=== PATIENT | female | born 1990 | race Caucasian/White ===

== ENCOUNTER 2016-05-17 16:33 | Emergency (ER) | payer OTHER ==
[2016-05-17 16:52] VITALS: BP 114/50
--- NOTE | 2016-05-17 17:09 | ED ---
Lower Extremity - HPI Summary HPI Summary: Patient presents with right knee pain that began 5 days ago that she noticed while walking down a hill. 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 She kneels on the knee quite often while cleaning, but has not fallen on it or injured it in the past. She notices mild swelling, but denies locking, clicking, catching or instability. No N/T. - History of Current Complaint Chief Complaint: EDExtremityLower Stated Complaint: RT KNEE PAIN Time Seen by Provider: 05/17/16 16:53 Hx Obtained From: Patient Hx Last Menstrual Period: OCTOBER 06 Mechanism Of Injury: Unknown Onset of Pain: Days - 5 Onset/Duration: Still Present - 5 Severity Initially: Moderate Severity Currently: Moderate Pain Intensity: 6 Timing: Intermittent - mostly when climbing or decending stairs Location: Is Discrete @ - right kneecap Character Of Pain: Sharp, Aching Associated Signs And Symptoms: Positive: Swelling - mild, Knee Pain Aggravating Factor(s): Stairs Alleviating Factor(s): Rest Able to Bear Weight: Yes - Allergies/Home Medications Allergies/Adverse Reactions: Allergies Allergy/AdvReac Type Severity Reaction Status Date / Time No Known Allergies Allergy Verified 05/17/16 16:52 PMH/Surg Hx/FS Hx/Imm Hx Endocrine/Hematology History: Denies: Hx Diabetes, Hx Thyroid Disease Cardiovascular History: Denies: Hx Hypertension Respiratory History: Denies: Hx Asthma, Hx Chronic Obstructive Pulmonary Disease (COPD) GI History: Denies: Hx Ulcer Psychiatric History: Reports: Hx Depression - PT denies, OB hx documents hx depression, Hx Inpatient Treatment - [facility] 06/2008, Hx of Violent Episodes Against Others - See H&P from 06/2008 admission - Immunization History Date of Tetanus Vaccine: Up to Date Date of Influenza Vaccine: None Infectious Disease History: No Infectious Disease History: Denies: Hx Hepatitis, Hx Human Immunodeficiency Virus (HIV), Traveled Outside the [place] in Last 30 Days - Family History Known Family History: Positive: Unknown, Hypertension - Social History Occupation: Employed Full-time Lives: With Family Alcohol Use: None Alcohol Amount: PT reports past hx of etoh use Substance Use Type: Reports: None Hx Tobacco Use: Yes Smoking Status (MU): Current Some Day Smoker Type: Cigarettes Have You Smoked in the Last Year: No Cessation Counseling: Patient Advised to Stop Review of Systems Positive: Myalgia, Edema - mild anterior knee. Negative: Decreased ROM Negative: Bruising Negative: Weakness, Paresthesia, Numbness All Other Systems Reviewed And Are Negative: Yes Physical Exam Triage Information Reviewed: Yes Vital Signs On Initial Exam: Initial Vitals Temp Pulse Resp BP Pulse Ox 98.6 F 82 18 114/50 97 05/17/16 16:50 05/17/16 16:50 05/17/16 16:50 05/17/16 16:50 05/17/16 16:50 Vital Signs Reviewed: Yes Appearance: Positive: Well-Appearing, No Pain Distress, Well-Nourished Skin: Positive: Warm, Skin Color Reflects Adequate Perfusion, Dry, Soft Head/Face: Positive: Normal Head/Face Inspection Eyes: Positive: EOMI, AYLIN, Conjunctiva Clear ENT: Positive: Hearing grossly normal Respiratory/Lung Sounds: Positive: Breath Sounds Present Cardiovascular: Positive: RRR Musculoskeletal: Positive: Strength/ROM Intact, Pain @ - TTP with patellar manipulation and over fat pad and patellar tendon; non-tender over med/lat joint line; stable to varus/valgus stress; neg. Palmira/Anshu's, Edema Right - mild anterior kneecap Neurological: Positive: Sensory/Motor Intact, Alert, Oriented to Person Place, Time, NV Bundle Intact Distally, Abnormal Gait - mild limp Psychiatric: Positive: Affect/Mood Appropriate AVPU Assessment: Alert Diagnostics - Vital Signs Vital Signs Temp Pulse Resp BP Pulse Ox 05/17/16 16:50 98.6 F 82 18 114/50 97 - Laboratory Lab Statement: Any lab studies that have been ordered have been reviewed, and results considered in the medical decision making process. Lower Extremity Course/Dx - Diagnoses Differential Diagnosis/HQI/PQRI: Positive: Arthritis, Bursitis, Cellulitis, Contusion, DVT, Fracture (Closed), Sprain, Strain Provider Diagnoses: Patellofemoral disorder of right knee Discharge - Discharge Plan Condition: Stable Disposition: HOME Patient Education Materials: Patellofemoral Pain Syndrome (ED) Forms: *Work Release Additional Instructions: Please use 600mg of ibuprofen three times daily with meals for the next 5-7 days , in combination with ice, rest and leg raises as we discussed. It is okay for you to bear weight but avoid activities that irritate the knee. Return to the emergency department if your symptoms worsen.
== END 2016-05-17 17:20 | disposition home or self-care (01) ==
LOC: ED 16:33
DX: M22.2X1 Patellofemoral disorders, right knee (principal); M25.561 Pain in right knee; Z72.0 Tobacco use
CPT/HCPCS: 99281

== ENCOUNTER 2016-06-21 10:44 | Emergency (ER) | payer MEDICAID, OTHER ==
[2016-06-21 10:53] VITALS: BP 118/66
[2016-06-21] MEDS ORDERED: Penicillin VK 500 MG TAB(NF) PO ONE (11:29)
[2016-06-21] MEDS ORDERED: diPHENhydraMINE PO* 25 MG PO ONE ×2 (11:29)
[2016-06-21] MEDS ORDERED: Penicillin VK TAB* 250 MG PO ONE ×3 (11:47→12:00)
--- NOTE | 2016-06-21 11:50 | ED ---
Washington Bond Janilya, scribed for Nico Fountain MD on 06/21/16 at 1121 . Skin Complaint - HPI Summary HPI Summary: [place] 25 y/o [place] [facility] [place]/ a gradual onset of constant erythemous, puritic area on the left side of jaw starting this morning. Pt states that the area is itchy and swollen. She suspects it might be a bite. Pt denies tooth infection and tooth pain. Pt is not on Abx. Pt states she had these exact Sx a month ago that lasted about a week. - History of Current Complaint Chief Complaint: EDRashSkinAbscess Time Seen by Provider: 06/21/16 11:14 Stated Complaint: DENTAL PAIN, Hx Obtained From: Patient Hx Last Menstrual Period: OCTOBER 06 Onset/Duration: Started Days Ago, Atraumatic, Still Present Skin Exposure Onset/Duration: Days Ago Timing: Constant Onset Severity: Moderate Current Severity: Moderate Pain Intensity: 0 Skin Location: Face - jaw Aggravating Symptom(s): Nothing Alleviating Symptom(s): Nothing - Allergy/Home Medications Allergies/Adverse Reactions: Allergies Allergy/AdvReac Type Severity Reaction Status Date / Time No Known Allergies Allergy Verified 06/21/16 10:51 PMH/Surg Hx/FS Hx/Imm Hx Previously Healthy: Yes Endocrine/Hematology History: Denies: Hx Diabetes, Hx Thyroid Disease Cardiovascular History: Denies: Hx Hypertension Respiratory History: Denies: Hx Asthma, Hx Chronic Obstructive Pulmonary Disease (COPD) GI History: Denies: Hx Ulcer Psychiatric History: Reports: Hx Depression - PT denies, OB hx documents hx depression, Hx Inpatient Treatment - [facility] 06/2008, Hx of Violent Episodes Against Others - See H&P from 06/2008 admission - Immunization History Date of Tetanus Vaccine: Up to Date Date of Influenza Vaccine: None Infectious Disease History: No Infectious Disease History: Denies: Hx Hepatitis, Hx Human Immunodeficiency Virus (HIV), Traveled Outside the [place] in Last 30 Days - Family History Known Family History: Positive: Hypertension - Social History Alcohol Use: None Alcohol Amount: PT reports past hx of etoh use Substance Use Type: Reports: None Hx Tobacco Use: Yes Smoking Status (MU): Light Every Day Tobacco Smoker Type: Cigarettes Have You Smoked in the Last Year: No Review of Systems ENT: Negative - pt denies tooth infection Negative: Dental Pain Positive: Other - Erythemous, puritic, itchy, swollen area on left side of jaw All Other Systems Reviewed And Are Negative: Yes Physical Exam Triage Information Reviewed: Yes Vital Signs On Initial Exam: Initial Vitals Temp Pulse Resp BP Pulse Ox 98.0 F 47 18 118/66 100 06/21/16 10:51 06/21/16 10:51 06/21/16 10:51 06/21/16 10:51 06/21/16 10:51 Vital Signs Reviewed: Yes Appearance: Positive: Well-Appearing, No Pain Distress Skin: Positive: Warm, Skin Color Reflects Adequate Perfusion, Dry Head/Face: Positive: Other - Erythema of left jaw. Eyes: Positive: EOMI, AYLIN ENT: Positive: Normal ENT inspection Dental: Positive: Gross Decay/Caries @, Other - Abcess in left lower gingiva. Neck: Positive: Supple, Nontender, No Lymphadenopathy Respiratory/Lung Sounds: Positive: Clear to Auscultation, Breath Sounds Present Cardiovascular: Positive: RRR Abdomen Description: Positive: Nontender, Soft Bowel Sounds: Positive: Present Musculoskeletal: Positive: Normal, Strength/ROM Intact Neurological: Positive: Normal, Sensory/Motor Intact, Alert, Oriented to Person Place, Time Psychiatric: Positive: Affect/Mood Appropriate Diagnostics - Vital Signs Vital Signs Temp Pulse Resp BP Pulse Ox 06/21/16 10:51 98.0 F 47 18 118/66 100 - Laboratory Lab Statement: Any lab studies that have been ordered have been reviewed, and results considered in the medical decision making process. Course/Dx - Course Assessment/Plan: DISCHARGE HOME STABLE. - Diagnoses Provider Diagnoses: Dental abscess, Skin rash Discharge - Discharge Plan Condition: Stable Disposition: HOME Prescriptions: Penicillin VK TAB 500 MG(NF) [Penicillin VK 500 mg Tab(NF)] 500 mg PO QID #39 tab diPHENhydraMINE PO* [Benadryl PO*] 25 mg PO Q6H PRN #20 tab PRN Reason: Itching Patient Education Materials: Dental Abscess (ED), Acute Rash (ED) [place] [facility] [place]] Additional Instructions: FOLLOW UP WITH YOUR PRIMARY CARE DOCTOR AND DENTIST. TAKE BENADRYL 25MG EVERY 4 HOURS NEEDED FOR ITCHING. RETURN TO THE EMERGENCY DEPARTMENT FOR ANY WORSENING OF YOUR CONDITION OR QUESTIONS OR CONCERNS. The documentation as recorded by the Washington morton Janilya accurately reflects the service I personally performed and the decisions made by me, Nico Fountain MD.
== END 2016-06-21 11:53 | disposition home or self-care (01) ==
LOC: ED 10:44
DX: K04.7 Periapical abscess without sinus (principal); R21 Rash and other nonspecific skin eruption; F17.210 Nicotine dependence, cigarettes, uncomplicated
CPT/HCPCS: 99282; A9270-GY

== ENCOUNTER 2016-07-19 21:16 | Emergency (ER) | payer SELFPAY ==
[2016-07-19 21:31] VITALS: BP 114/59
--- NOTE | 2016-07-19 22:02 | UC ---
UC General HPI - HPI Summary HPI Summary: complaint of feeling some clear round things in in her pubic area this morning partner had some itching in pubic hair for 1 week started having itching this morning denies any abnormal vaginal discharge,lesions, dysuria LMP denies fever - History of Current Complaint Chief Complaint: UCGU Stated Complaint: ITHCING BURNING BETWEEN LEGS Time Seen by Provider: 07/19/16 21:58 Hx Obtained From: Patient - Allergy/Home Medications Allergies/Adverse Reactions: Allergies Allergy/AdvReac Type Severity Reaction Status Date / Time No Known Allergies Allergy Verified 06/21/16 10:51 PMH/Surg Hx/FS Hx/Imm Hx Previously Healthy: Yes Endocrine History Of: Denies: Diabetes, Thyroid Disease Cardiovascular History Of: Denies: Cardiac Disorders, Hypertension Respiratory History Of: Denies: COPD, Asthma GI/ History Of: Denies: Ulcer Psychological History Of: Reports: Depression - PT denies, OB hx documents hx depression - Surgical History Surgical History: None - Family History Known Family History: Positive: Unknown, Hypertension - Social History Occupation: Employed Full-time Lives: With Family Alcohol Use: None Alcohol Amount: PT reports past hx of etoh use Substance Use Type: None Smoking Status (MU): Light Every Day Tobacco Smoker Type: Cigarettes Have You Smoked in the Last Year: No Household Exposure Type: Cigarettes - Immunization History Most Recent Influenza Vaccination: 04/05/14 Most Recent Tetanus Shot: 04/05/14 Most Recent Pneumonia Vaccination: never Review of Systems Constitutional: Negative Skin: Negative Eyes: Negative ENT: Negative Respiratory: Negative Cardiovascular: Negative Gastrointestinal: Negative Genitourinary: Negative Motor: Negative Neurovascular: Negative Musculoskeletal: Negative Neurological: Negative Psychological: Negative All Other Systems Reviewed And Are Negative: Yes Physical Exam Triage Information Reviewed: Yes Appearance: No Pain Distress, Well-Nourished Vital Signs: Initial Vital Signs Temp 98.9 F 07/19/16 21:27 Pulse 79 07/19/16 21:27 Resp 18 07/19/16 21:27 BP 114/59 07/19/16 21:27 Pulse Ox 100 07/19/16 21:27 Vital Signs Reviewed: Yes Eyes: Positive: Conjunctiva Clear ENT: Positive: Pharynx normal, TMs normal Neck: Positive: Supple, No Lymphadenopathy Respiratory: Positive: Lungs clear, Normal breath sounds, No respiratory distress Cardiovascular: Positive: RRR, No Murmur, Pulses Normal Abdomen Description: Positive: Nontender, Soft Bowel Sounds: Positive: Present Musculoskeletal: Positive: No Edema Neurological: Positive: Alert Psychological Exam: Normal Skin: Positive: Other - pubic area wihtout any erythema, lesions, edema or parasites Course/Dx - Differential Dx - Multi-Symptom Provider Diagnoses: positive test Discharge - Discharge Plan Condition: Stable Disposition: HOME Prescriptions: Vitamin [Calna] 1 tab PO DAILY #30 tab Patient Education Materials: (ED) Forms: *Work Release Referrals: No Primary Care Phys,NOPCP [Primary Care Provider] - [facility] [place] Additional Instructions: you have tested positive for please start vitamin avoid smoking and alcohol and limit caffeine to 1 cup a day please contact your [facility] provider for further care
== END 2016-07-19 22:22 | disposition home or self-care (01) ==
LOC: UCEAST 21:16
DX: L29.8 Other pruritus (principal); Z32.01 Encounter for pregnancy test, result positive; F32.9 Major depressive disorder, single episode, unspecified; F17.210 Nicotine dependence, cigarettes, uncomplicated
CPT/HCPCS: 84702; 99212; G0463

== ENCOUNTER 2016-08-22 18:53 | Emergency (ER) | payer OTHER ==
[2016-08-22 20:39] LABS: Urine Bacteria 1+ (Absent); Urine Bilirubin Negative (Negative); Urine Glucose Negative (Negative); Urine Nitrite Negative (Negative)
[2016-08-22 21:01] LABS: Hematocrit 38 % (35-47); Hemoglobin 12.6 g/dl (12.0-16.0); Mean Corpuscular HGB Conc 33 g/dl (31-36); Mean Corpuscular Hemoglobin 31 pg (27-31); Mean Corpuscular Volume 93 fL (80-97); Mean Platelet Volume 9 um3 (7.4-10.4); Red Blood Count 4.11 10^6/ul (4.0-5.4); Red Cell Distribution Width 13 % (10.5-15)
[2016-08-22 21:13] LABS: Albumin 3.9 g/dL (3.2-5.2); BUN/Creatinine Ratio 15.9 (8-20); Calcium 8.9 mg/dL (8.6-10.3); EGFR African American 149.3 (>60); EGFR Non-African American 116.1 (>60); Potassium 3.9 mmol/L (3.5-5.0); Total Bilirubin 0.3 mg/dL (0.2-1.0); Total Protein 6.9 g/dL (6.4-8.9)
[2016-08-22] MEDS ORDERED: Sulfamethox/Trimethoprim DS 800/160* TAB PO ONE (22:04)
[2016-08-22] MEDS ORDERED: cefTRIAXone VIAL(*) 250 MG VIAL IM ONE (22:28)
[2016-08-22] MEDS ORDERED: Azithromycin TAB* 250 MG PO ONE (22:29)
[2016-08-22] MEDS ORDERED: Phenazopyridine TAB* 100 MG PO ONE (23:08)
--- NOTE | 2016-08-22 23:08 | ED ---
GI/ HPI - HPI Summary HPI Summary: Patient is a 2 mo female who presents with CC of green thick vaginal discharge since yesterday. She endorses vaginal inflammation and pain. Denies pain with urination, urgency or frequency. Denies foul odor. She has never had BV or vika before. She notes to intercourse with someone who has had multiple partners. She has never had an STI before. She denies other symptoms. She is otherwise healthy. She does have an OBGYN which she is seeing yesterday. - History of Current Complaint Chief Complaint: EDUrogenitalProblems Time Seen by Provider: 08/22/16 19:39 Stated Complaint: 2MOS PREG/VAG DISCHARGE,SWELLING Hx Obtained From: Patient Onset/Duration: Started Days Ago Timing: Constant Severity: Moderate Pain Intensity: 0 Additional Location for Females: Vulva Pain Characteristics: Burning Associated Signs and Symptoms: Positive: Dysuria Additional Signs & Symptoms: Positive: Genital Swelling, Vaginal Discharge, Positive Test, Pelvic Infammatory Disease, STD - Allergy/Home Medications Allergies/Adverse Reactions: Allergies Allergy/AdvReac Type Severity Reaction Status Date / Time No Known Allergies Allergy Verified 06/21/16 10:51 PMH/Surg Hx/FS Hx/Imm Hx Previously Healthy: Yes Endocrine/Hematology History: Denies: Hx Diabetes, Hx Thyroid Disease Cardiovascular History: Denies: Hx Hypertension Respiratory History: Denies: Hx Asthma, Hx Chronic Obstructive Pulmonary Disease (COPD) GI History: Denies: Hx Ulcer Psychiatric History: Reports: Hx Depression - PT denies, OB hx documents hx depression, Hx Inpatient Treatment - [facility] 06/2008, Hx of Violent Episodes Against Others - See H&P from 06/2008 admission - Immunization History Date of Tetanus Vaccine: Up to Date Date of Influenza Vaccine: None Hx Pertussis Vaccination: No Immunizations Up to Date: No Infectious Disease History: Yes Infectious Disease History: Denies: Hx Hepatitis, Hx Human Immunodeficiency Virus (HIV), Traveled Outside the [place] in Last 30 Days - Family History Known Family History: Positive: Unknown, Hypertension - Social History Occupation: Unemployed Lives: With Family Alcohol Use: None Alcohol Amount: PT reports past hx of etoh use Hx Substance Use: No Substance Use Type: Reports: None Hx Tobacco Use: Yes Smoking Status (MU): Former Smoker Type: Cigarettes Have You Smoked in the Last Year: No Review of Systems Constitutional: Negative Eyes: Negative Cardiovascular: Negative Respiratory: Negative Positive: no symptoms reported, see HPI, discharge, pain Musculoskeletal: Negative Neurological: Negative Psychological: Normal All Other Systems Reviewed And Are Negative: Yes Physical Exam Triage Information Reviewed: Yes Vital Signs On Initial Exam: Initial Vitals Temp Pulse Resp BP Pulse Ox 98.3 F 69 18 116/41 100 08/22/16 19:19 08/22/16 19:19 08/22/16 19:19 08/22/16 19:19 08/22/16 19:19 Vital Signs Reviewed: Yes Appearance: Positive: Well-Appearing, Well-Nourished Skin: Positive: Warm, Skin Color Reflects Adequate Perfusion Eyes: Positive: Normal, AYLIN ENT: Positive: Normal ENT inspection Neck: Positive: Supple, No Lymphadenopathy Respiratory/Lung Sounds: Positive: Clear to Auscultation, Breath Sounds Present Cardiovascular: Positive: RRR, Pulses are Symmetrical in both Upper and Lower Extremities Musculoskeletal: Positive: Normal, Strength/ROM Intact Neurological: Positive: Sensory/Motor Intact, Alert, Oriented to Person Place, Time Psychiatric: Positive: Normal AVPU Assessment: Alert Procedures - Procedure Summary Procedure Summary: pelvic examination reveals green white discharge. Swabs obtained Diagnostics - Vital Signs Vital Signs Temp Pulse Resp BP Pulse Ox 08/22/16 20:40 98.6 F 72 18 107/59 99 08/22/16 19:19 98.3 F 69 18 116/41 100 - Laboratory Lab Results: Lab Results 08/22/16 08/22/16 08/22/16 Range/Units 20:28 20:50 20:50 WBC 10.0 (3.5-10.8) 10^3/ul RBC 4.11 (4.0-5.4) 10^6/ul Hgb 12.6 (12.0-16.0) g/dl Hct 38 (35-47) % MCV 93 (80-97) fL MCH 31 (27-31) pg MCHC 33 (31-36) g/dl RDW 13 (10.5-15) % Plt Count 212 (150-450) 10^3/ul MPV 9 (7.4-10.4) um3 Neut % (Auto) 66.8 (38-83) % Lymph % (Auto) 25.6 (25-47) % Sevier % (Auto) 5.4 (1-9) % Eos % (Auto) 1.5 (0-6) % Baso % (Auto) 0.7 (0-2) % Absolute Neuts (auto) 6.7 (1.5-7.7) 10^3/ul Absolute Lymphs (auto) 2.6 (1.0-4.8) 10^3/ul Absolute Monos (auto) 0.5 (0-0.8) 10^3/ul Absolute Eos (auto) 0.2 (0-0.6) 10^3/ul Absolute Basos (auto) 0.1 (0-0.2) 10^3/ul Absolute Nucleated RBC 0.01 10^3/ul Nucleated RBC % 0.1 Sodium 132 L (133-145) mmol/L Potassium 3.9 (3.5-5.0) mmol/L Chloride 102 (101-111) mmol/L Carbon Dioxide 24 (22-32) mmol/L Anion Gap 6 (2-11) mmol/L BUN 10 (6-24) mg/dL Creatinine 0.63 (0.51-0.95) mg/dL Est GFR ( Amer) 149.3 (>60) Est GFR (Non-Af Amer) 116.1 (>60) BUN/Creatinine Ratio 15.9 (8-20) Glucose 83 (70-100) mg/dL Calcium 8.9 (8.6-10.3) mg/dL Total Bilirubin 0.30 (0.2-1.0) mg/dL AST 9 L (13-39) U/L ALT 7 (7-52) U/L Alkaline Phosphatase 52 (34-104) U/L Total Protein 6.9 (6.4-8.9) g/dL Albumin 3.9 (3.2-5.2) g/dL Globulin 3.0 (2-4) g/dL Albumin/Globulin Ratio 1.3 (1-3) Urine Color Yellow Urine Appearance Cloudy Urine pH 7.0 (5-9) Ur Specific [place] 1.028 (1.010-1.030) Urine Protein Negative (Negative) Urine Ketones Negative (Negative) Urine Blood Negative (Negative) Urine Nitrate Negative (Negative) Urine Bilirubin Negative (Negative) Urine Urobilinogen Negative (Negative) Ur Leukocyte Esterase 2+ H (Negative) Urine WBC (Auto) 2+(11-20/hpf) H (Absent) Urine RBC (Auto) Trace(0-2/hpf) (Absent) Ur Squamous Epith Cells Present H (Absent) Urine Bacteria 1+ H (Absent) Urine Glucose Negative (Negative) Result Diagrams: 08/22/16 20:50 08/22/16 20:50 Lab Statement: Any lab studies that have been ordered have been reviewed, and results considered in the medical decision making process. GIGU Course/Dx - Course Course Of Treatment: Pelvic revealed green white discharge. Swabs obtained and sent to lab. BV negative, vika positive. Clotrimazole cream topical sent to rx. awaiting results of kenna/chlamydia results. Labs WNL. UA shows UTI. Bactrim prescribed. Will call patient with results. - Diagnoses Differential Diagnoses - Female: , STD, Urinary Tract Infection Provider Diagnoses: Vaginal discharge during Discharge - Discharge Plan Condition: Stable Disposition: HOME Prescriptions: Clotrimazole 1% VAGINAL CREAM* [Gyne-Lotrimin 1% VAGINAL CREAM*] 1 applic VAGINAL BEDTIME #1 tube Phenazopyridine TAB* [Pyridium 100 mg TAB*] 100 mg PO TID #12 tab Sulfamethox/Trimethoprim DS* [Bactrim DS 800/160 TAB*] 1 tab PO BID #5 tab Patient Education Materials: Sexually Transmitted Diseases (ED), Urinary Tract Infection in Women (ED) Referrals: No Primary Care Phys,NOPCP [Primary Care Provider] - Additional Instructions: Dx. Urinary Tract Infection with possible Sexually Transmitted Infection Tell partners to get treated or they will continue to re-infect others. For UTI: Drink plenty of fluids. Supplement with cranberry or gregory juice. You may also take an over the counter cranberry supplement. If you have any questions about this, you may ask your pharmacist. If your symptoms have not improved in 1-2 days, if you develop fever, sweats or chills, please go to your emergency room, or call your PCP. Antibiotics were prescribed to you. Please take as directed. Supplement with over the counter probiotics on the opposite schedule of your antibiotic to prevent secondary infections. Do not take together as they may counteract each other. Pyridium: This medication is used to treat pain, burning, increased urination, and increased urge to urinate. These symptoms are usually caused by infection, injury, surgery, catheter, or other conditions that irritate the lower urinary tract. Pyridium will treat the symptoms of a urinary tract infection, but this medication does not treat the actual infection. Take the antibiotic that your doctor prescribes to treat your infection. Pyridium will most likely darken the color of your urine to an orange or red color. This is a normal effect and is not cause for alarm unless you have other symptoms such as pale or yellowed skin, fever, stomach pain, nausea, and vomiting. Darkened urine may also cause stains to your underwear, which may or may not be removed by laundering. It can also permanently stain soft contact lenses, and you should not wear them while taking this medicine.
[2016-08-23 01:43] VITALS: BP 97/43
== END 2016-08-22 23:30 | disposition home or self-care (01) ==
LOC: ED 18:53
DX: O26.891 Other specified pregnancy related conditions, first trimester (principal); O23.41 Unspecified infection of urinary tract in pregnancy, first trimester; N89.8 Other specified noninflammatory disorders of vagina; Z87.891 Personal history of nicotine dependence
CPT/HCPCS: 36415; 80053; 81003; 81015; 85025; 87086; 87480; 87491; 87510; 87591; 87661; 93005; 96372; 99283; A9270-GY; J0696

== ENCOUNTER 2016-08-25 12:01 | Emergency (ER) | payer OTHER ==
[2016-08-25] MEDS ORDERED: Fluconazole 100 MG TAB* TAB PO ONE (13:40)
--- NOTE | 2016-08-25 13:51 | ED ---
GI/ HPI - HPI Summary HPI Summary: Patient presents with continued vaginal itching and burning since she was last seen in this ED. She did not know that a prescription for anti-fungal cream was sent to her pharmacy so she has not used any medication to help with her symptoms. She has been taking the antibiotic prescribed as directed and has a follow-up appointment with her TRAIN EXAMINER on September 11. She denies new complaints or sexual contacts. - History of Current Complaint Chief Complaint: EDOBProblems Time Seen by Provider: 08/25/16 12:28 Stated Complaint: PELVIC PAIN Hx Obtained From: Patient Onset/Duration: Started Days Ago Timing: Constant Severity: Severe Current Severity: Severe Pain Intensity: 10 Pain Characteristics: Burning, Itching Associated Signs and Symptoms: Positive: Negative Aggravating Factor(s): Urination - Allergy/Home Medications Allergies/Adverse Reactions: Allergies Allergy/AdvReac Type Severity Reaction Status Date / Time No Known Allergies Allergy Verified 06/21/16 10:51 PMH/Surg Hx/FS Hx/Imm Hx Endocrine/Hematology History: Denies: Hx Diabetes, Hx Thyroid Disease Cardiovascular History: Denies: Hx Hypertension Respiratory History: Denies: Hx Asthma, Hx Chronic Obstructive Pulmonary Disease (COPD) GI History: Denies: Hx Ulcer Psychiatric History: Reports: Hx Depression - PT denies, OB hx documents hx depression, Hx Inpatient Treatment - [facility] 06/2008, Hx of Violent Episodes Against Others - See H&P from 06/2008 admission - Immunization History Date of Tetanus Vaccine: UTD Date of Influenza Vaccine: NO Infectious Disease History: No Infectious Disease History: Denies: Hx Hepatitis, Hx Human Immunodeficiency Virus (HIV), Traveled Outside the [place] in Last 30 Days - Family History Known Family History: Positive: Unknown, Hypertension - Social History Occupation: Employed Part-time Lives: With Family Alcohol Use: None Alcohol Amount: PT reports past hx of etoh use Hx Substance Use: No Substance Use Type: Reports: None Hx Tobacco Use: Yes Smoking Status (MU): Former Smoker Type: Cigarettes Have You Smoked in the Last Year: No Review of Systems Positive: burning - vaginal, discharge - vaginal All Other Systems Reviewed And Are Negative: Yes Physical Exam Triage Information Reviewed: Yes Vital Signs On Initial Exam: Initial Vitals Temp Pulse Resp BP Pulse Ox 98.1 F 64 18 109/47 100 08/25/16 12:02 08/25/16 12:02 08/25/16 12:02 08/25/16 12:02 08/25/16 12:02 Vital Signs Reviewed: Yes Appearance: Positive: Well-Appearing, No Pain Distress, Well-Nourished Skin: Positive: Warm, Skin Color Reflects Adequate Perfusion, Dry, Soft Head/Face: Positive: Normal Head/Face Inspection Eyes: Positive: EOMI, AYLIN, Conjunctiva Clear ENT: Positive: Hearing grossly normal Respiratory/Lung Sounds: Positive: Breath Sounds Present Cardiovascular: Positive: RRR Abdomen Description: Positive: Nontender, Soft Pelvic Exam: Positive: external exam normal Neurological: Positive: Sensory/Motor Intact, Alert, Oriented to Person Place, Time, NV Bundle Intact Distally, Normal Gait Psychiatric: Positive: Affect/Mood Appropriate AVPU Assessment: Alert - [place] Coma Scale Coma Scale Total: 15 Diagnostics - Vital Signs Vital Signs Temp Pulse Resp BP Pulse Ox 08/25/16 12:35 98.1 F 64 18 109/47 100 08/25/16 12:02 98.1 F 64 18 109/47 100 - Laboratory Lab Statement: Any lab studies that have been ordered have been reviewed, and results considered in the medical decision making process. GIGU Course/Dx - Diagnoses Differential Diagnoses - Female: Cervicitis, Colitis, Cystitis, , STD, Vaginitis Provider Diagnoses: Jennifer vaginitis Discharge - Discharge Plan Condition: Stable Disposition: HOME Patient Education Materials: Vulvovaginal Candidiasis (ED) Referrals: No Primary Care Phys,NOPCP [Primary Care Provider] - Additional Instructions: Although you were given a pill today, pick up attendant the cream from your pharmacy to use as directed. Follow-up with your TRAIN EXAMINER as scheduled.
[2016-08-25 14:14] VITALS: BP 105/67
== END 2016-08-25 14:14 | disposition home or self-care (01) ==
LOC: ED 12:01
DX: B37.3 Candidiasis of vulva and vagina (principal); R10.2 Pelvic and perineal pain; Z87.891 Personal history of nicotine dependence
CPT/HCPCS: 99282

== ENCOUNTER 2016-09-03 20:00 | Emergency (ER) | payer OTHER ==
--- NOTE | 2016-09-03 20:37 | UC ---
Abdominal Pain Female HPI - HPI Summary HPI Summary: The patient comes in today for: 1. 3 months with vaginal bleeding: Onset: She had bleeding yesterday and has cramping today. She states that the bleeding has stopped, but the mucous plug is coming out. Palliative/provocative: Nothing makes her symptoms better or worse. Quality: Cramping. Region: Abdomin. Severity: 8/10 Time: Constant Associated symptoms: Fevers: No temperature taken. A0 with EDC of March 25. DENTAL FRONT OFFICE ASSISTANT: Jerman. She does not know what blood type she is. * - History of Current Complaint Chief Complaint: UCGU Stated Complaint: ABDOMINAL PAIN Time Seen by Provider: 09/03/16 20:31 Hx Obtained From: Patient Hx Last Menstrual Period: ~3 MONTHS AGO Allergies/Adverse Reactions: Allergies Allergy/AdvReac Type Severity Reaction Status Date / Time No Known Allergies Allergy Verified 09/03/16 20:13 PMH/Surg Hx/FS Hx/Imm Hx Previously Healthy: No Endocrine History Of: Denies: Diabetes, Thyroid Disease, Hyperthyroidism, Hypothyroidism, Dyslipidemia Cardiovascular History Of: Denies: Cardiac Disorders, Hypertension, Pacemaker/ICD, Myocardial Infarction , Congestive Heart Failure, Atrial Fibrillation, Deep Vein Thrombosis, Bleeding Disorders Respiratory History Of: Denies: COPD, Asthma, Bronchitis, Pneumonia, Pulmonary Embolism GI/ History Of: Denies: Gastroesophageal Reflux, Ulcer, Gastrointestinal Bleed, Gall Bladder Disease, Kidney Stones, Diverticulitis, Renal Disease, Urosepsis Neurological History Of: Denies: TIA, CVA, Dementia, Seizures, Migraine Psychological History Of: Reports: Depression - PT denies, OB hx documents hx depression Denies: Anxiety, Bipolar Disorder, Schizophrenia, Post Traumatic Stress Disorder Cancer History Of: Denies: Lung Cancer, Colorectal Cancer, Breast Cancer, Prostate Cancer, Cervical Cancer Other History Of: Negative For: HIV, Hepatitis B, Hepatitis C, Anticoagulant Therapy - Surgical History Surgical History: None - Family History Known Family History: Positive: Unknown - She is adopted. - Social History Occupation: Employed Full-time Alcohol Use: None Alcohol Amount: PT reports past hx of etoh use Substance Use Type: None Smoking Status (MU): Former Smoker Type: Cigarettes Have You Smoked in the Last Year: No Household Exposure Type: Cigarettes - Immunization History Most Recent Influenza Vaccination: 04/05/14 Most Recent Tetanus Shot: 04/05/14 Most Recent Pneumonia Vaccination: never Review of Systems Constitutional: Negative Skin: Negative Eyes: Negative ENT: Negative Respiratory: Negative Cardiovascular: Negative Gastrointestinal: Abdominal Pain Genitourinary: Negative All Other Systems Reviewed And Are Negative: Yes Physical Exam Triage Information Reviewed: Yes Appearance: Well-Appearing, No Pain Distress, Well-Nourished Vital Signs: Initial Vital Signs Temp 97.4 F 09/03/16 20:06 Pulse 86 09/03/16 20:06 Resp 16 09/03/16 20:06 BP 122/54 09/03/16 20:06 Pulse Ox 97 09/03/16 20:06 Eyes: Positive: Conjunctiva Clear. Negative: Discharge ENT: Positive: Hearing grossly normal. Negative: Pharyngeal erythema, Nasal congestion, Nasal drainage, TM bulging, TM dull, TM red, Tonsillar swelling, Tonsillar exudate Dental: Negative: Gross Decay/Caries @, Dental Fracture @ Neck: Positive: Supple, Nontender, No Lymphadenopathy. Negative: Nuchal Rigidity Respiratory: Positive: Lungs clear, No respiratory distress, No accessory muscle use. Negative: Rhonchi, Wheezing Cardiovascular: Positive: RRR, No Murmur Abdomen Description: Positive: No Organomegaly, Soft. Negative: Nontender - She had generalized tenderness in the lower midline of the abdomen. No rebound or percussion tenderness., Distended, Guarding, Peritoneal Signs Musculoskeletal: Positive: Strength Intact, ROM Intact, No Edema Neurological: Positive: Alert, Muscle Tone Normal Psychological: Positive: Age Appropriate Behavior, Consolable Skin: Negative: rashes, breakdown Abd Pain Female Course/Dx - Course Course Of Treatment: Patient was told that my diagnosis is that she is having a threatened and needs more indepth evaluation at the ER. She agrees and wants to go to ER via ambulance since she has no way of getting there. - Differential Dx/Diagnosis Provider Diagnoses: Abdominal pain, vaginal bleeding, 11 week . Discharge - Discharge Plan Condition: Stable Disposition: TRANS [facility] FAC Forms: *Work Release Referrals: No Primary Care Phys,NOPCP [Primary Care Provider] -
[2016-09-03 21:00] VITALS: BP 110/60
== END 2016-09-03 21:06 | disposition short-term general hospital (02) ==
LOC: UCEAST 20:00
DX: O20.0 Threatened abortion (principal); Z3A.11 11 weeks gestation of pregnancy
CPT/HCPCS: 99213; G0463

== ENCOUNTER 2016-09-03 21:39 | Emergency (ER) | payer OTHER ==
[2016-09-03] MEDS ORDERED: RHO D Immune Globulin (HUMAN)* 300 MCG = 1,500 I.U. INJ IM ONE (22:00)
[2016-09-03 22:05] LABS: Hematocrit 36 % (35-47); Hemoglobin 11.7 g/dl (12.0-16.0); Mean Corpuscular HGB Conc 33 g/dl (31-36); Mean Corpuscular Hemoglobin 31 pg (27-31); Mean Corpuscular Volume 93 fL (80-97); Mean Platelet Volume 10 um3 (7.4-10.4); Red Blood Count 3.81 10^6/ul (4.0-5.4); Red Cell Distribution Width 13 % (10.5-15); White Blood Count 10.2 10^3/ul (3.5-10.8)
[2016-09-03 23:59] LABS: Urine Bacteria 1+ (Absent); Urine Bilirubin Negative (Negative); Urine Glucose Negative (Negative); Urine Nitrite Negative (Negative)
[2016-09-04 00:54] VITALS: BP 101/48
--- NOTE | 2016-09-04 01:19 | ED ---
Earle Bond Rebecca, scribed for Mignon Rogers MD on 09/04/16 at 0046 . Progress - Progress Note Progress Note: Pt was signed out from Dr. Abreu at 1900. - Results/Orders Results/Orders: US reveals: Live intrauterine gestation of approximately 11 weeks 3 days. Placenta is forming posteriorly. No myah-gestational hematoma seen. No other acute abnormality seen. Normal appearance of both ovaries. Course/Dx - Diagnoses Provider Diagnoses: Vaginal bleeding in The documentation as recorded by the Earle morton Rebecca accurately reflects the service I personally performed and the decisions made by me, Mignon Rogers MD.
--- NOTE | 2016-09-04 08:06 | RAD ---
INDICATION: , vaginal bleeding. COMPARISON: There are no prior studies available for comparison. TECHNIQUE: Multiple real-time transvaginal images of the pelvis were obtained. FINDINGS: This exam demonstrates an early intrauterine . The fetus is visualized. There is normal motion. The heart rate was 163 beats per minute. No perigestational sac hemorrhage is seen. The cervix is closed and measures 4.7 cm in length. The crown-rump length measured 4.47 cm corresponding to an estimated gestational age of 11 weeks 3 days. The right ovary measured 2.3 x 2.2 x 1.6 cm. The left ovary measured 1.9 x 1.3 x 1.4 cm. No free intraperitoneal fluid is seen. IMPRESSION: THERE IS A VIABLE EARLY INTRAUTERINE WITH AN ESTIMATED GESTATIONAL AGE OF 11 WEEKS 3 DAYS.
== END 2016-09-04 00:53 | disposition home or self-care (01) ==
LOC: ED 21:39
DX: O46.91 Antepartum hemorrhage, unspecified, first trimester (principal); Z3A.11 11 weeks gestation of pregnancy
CPT/HCPCS: 36415; 76801; 81003; 81015; 84702; 85025; 87086; 99282; J2790

== ENCOUNTER 2017-03-23 10:11 | Inpatient (IN) | payer OTHER ==
[2017-03-23] MEDS ORDERED: Misoprostol TAB* 100 MCG VAGINAL ONE (11:02)
[2017-03-23 14:32] LABS: Hematocrit 33 % (35-47); Hemoglobin 10.7 g/dl (12.0-16.0); Mean Corpuscular HGB Conc 33 g/dl (31-36); Mean Corpuscular Hemoglobin 29 pg (27-31); Mean Corpuscular Volume 88 fL (80-97); Mean Platelet Volume 10 um3 (7.4-10.4); Red Blood Count 3.74 10^6/ul (4.0-5.4); Red Cell Distribution Width 14 % (10.5-15); White Blood Count 8.1 10^3/ul (3.5-10.8)
[2017-03-23] MEDS ORDERED: Promethazine INJ(RESTRICTED)* 25 MG/ML 1 ML VIAL IV SCH (20:00)
[2017-03-23] MEDS ORDERED: Nalbuphine* 20 MG/ML 1 ML VIAL IV SCH (20:00)
[2017-03-24] MEDS ORDERED: OBEPIDURAL* 250 ML ONE (08:08)
[2017-03-24] MEDS ORDERED: Phenylephrine IV* 40 MCG/ML 10 ML SYRINGE IV PUSH PRN (09:39)
[2017-03-24] MEDS ORDERED: Famotidine TAB* 20 MG PO PRN (09:39)
[2017-03-24] MEDS ORDERED: Sodium Citrate/Citric Acid* 15 ML UDC PO PRN (09:39)
[2017-03-24] MEDS ORDERED: OBEPIDURAL* 250 ML EPIDURAL SCH (10:00)
[2017-03-24 12:59] LABS: Benzodiazepine Urine Screen None Detected (None Detect)
[2017-03-24] MEDS ORDERED: Oxytocin in LR* 20 UNITS/1,000 ML BAG IVPB ONE (15:05)
[2017-03-24] MEDS ORDERED: Glycerin ADULT SUPP PR PRN (15:41)
[2017-03-24] MEDS ORDERED: Acetaminophen TAB* 325 MG PO PRN (15:41)
[2017-03-24] MEDS ORDERED: Witch Hazel PAD* JAR TOPICAL PRN (15:41)
[2017-03-24] MEDS ORDERED: RHO D Immune Globulin (HUMAN)* 300 MCG = 1,500 I.U. INJ IM ONE (15:41)
[2017-03-24] MEDS ORDERED: Dibucaine 1% 28.35 GM TUBE PR PRN (15:41)
[2017-03-24] MEDS ORDERED: Oxytocin in LR* 20 UNITS/1,000 ML BAG IVPB SCH (16:00)
[2017-03-24] MEDS ORDERED: Simethicone TAB* 80 MG TAB.CHEW PO SCH (17:30)
[2017-03-24] MEDS: Ibuprofen TAB* 600 MG PO PRN (22:35)
[2017-03-24] MEDS: Docusate CAP* 100 MG PO SCH (22:35)
[2017-03-25 08:01] LABS: Hematocrit 31 % (35-47); Mean Corpuscular HGB Conc 33 g/dl (31-36); Mean Corpuscular Hemoglobin 29 pg (27-31); Mean Corpuscular Volume 87 fL (80-97); Mean Platelet Volume 10 um3 (7.4-10.4); Red Cell Distribution Width 14 % (10.5-15); White Blood Count 11.6 10^3/ul (3.5-10.8)
[2017-03-25] MEDS: Ibuprofen TAB* 600 MG PO PRN ×2 (08:27→15:08)
[2017-03-25] MEDS: Docusate CAP* 100 MG PO SCH ×3 (08:28→20:14)
[2017-03-25] MEDS ORDERED: Ferrous Gluconate TAB* 324 MG TAB PO SCH (09:00)
[2017-03-26 08:20] VITALS: BP 116/62
[2017-03-26] MEDS: Ibuprofen TAB* 600 MG PO PRN ×2 (09:23)
[2017-03-26] MEDS: Docusate CAP* 100 MG PO SCH (09:24)
== END 2017-03-26 11:45 | disposition home or self-care (01) | DRG 560 ==
LOC: MCHOBOUT 10:11 → MCHOB 11:06
PROVIDERS: ADMIT Midwife; ATTEND Obstetrics & Gynecology
PROC: 3E0P7VZ Introduction of Hormone into Female Reproductive, Via Natural or Artificial Opening (ICD-10-PCS; principal; 2017-03-24)
PROC: 10907ZC Drainage of Amniotic Fluid, Therapeutic from Products of Conception, Via Natural or Artificial Opening (ICD-10-PCS; 2017-03-24)
PROC: 10E0XZZ Delivery of Products of Conception, External Approach (ICD-10-PCS; 2017-03-24)
PROC: 4A1HXCZ Monitoring of Products of Conception, Cardiac Rate, External Approach (ICD-10-PCS; 2017-03-24)
PROC: 0UQMXZZ Repair Vulva, External Approach (ICD-10-PCS; 2017-03-24)
DX: O99.324 Drug use complicating childbirth (principal); F12.90 Cannabis use, unspecified, uncomplicated; Z3A.39 39 weeks gestation of pregnancy; Z37.0 Single live birth; Z67.41 Type O blood, Rh negative; O71.89 Other specified obstetric trauma
CPT/HCPCS: 36415; 80307; 85025; 85461; 86850; 86870; 86880; 86900; 86901; A9270-GY; J2300; J2550; J2790; S0191

== ENCOUNTER 2017-05-19 15:39 | Emergency (ER) | payer OTHER ==
--- NOTE | 2017-05-19 16:10 | ED ---
Throat Pain/Nasal Congestion - HPI Summary HPI Summary: 26 female presents to ED with complains of sore throat that began yesterday and worsened today. States she felt feeling feverish and having body aches. Admits to some cough and congestion. Thinks she has strep. 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 No other complaints. Denies nausea, vomiting. Did not take temp but states she felt warm/feverish. No other complaints at this time. No PMHx. Kids did just have strep. - History of Current Complaint Chief Complaint: EDThroatPain Hx Obtained From: Patient Onset/Duration: Sudden Onset, Lasting Days, Still Present, Worse Since Severity: Moderate Associated Signs And Symptoms: Positive: Dysphagia, Nasal Discharge Cough: Nonproductive - Epiglottits Risk Factors Epiglottis Risk Factors: Negative - Allergies/Home Medications Allergies/Adverse Reactions: Allergies Allergy/AdvReac Type Severity Reaction Status Date / Time No Known Allergies Allergy Verified 03/23/17 10:53 PMH/Surg Hx/FS Hx/Imm Hx Endocrine/Hematology History: Denies: Hx Anticoagulant Therapy, Hx Diabetes, Hx Thyroid Disease Cardiovascular History: Denies: Hx Congestive Heart Failure, Hx Deep Vein Thrombosis, Hx Hypertension , Hx Myocardial Infarction, Hx Pacemaker/ICD Respiratory History: Denies: Hx Asthma, Hx Chronic Obstructive Pulmonary Disease (COPD), Hx Lung Cancer, Hx Pneumonia, Hx Pulmonary Embolism GI History: Denies: Hx Gall Bladder Disease, Hx Gastrointestinal Bleed, Hx Ulcer, Hx Urosepsis History: Denies: Hx Kidney Stones, Hx Renal Disease Neurological History: Denies: Hx Dementia, Hx Migraine, Hx Seizures, Hx Transient Ischemic Attacks (TIA) Psychiatric History: Reports: Hx Depression - PT denies, OB hx documents hx depression, Hx Inpatient Treatment - [facility] 06/2008, Hx of Violent Episodes Against Others - See H&P from 06/2008 admission Denies: Hx Anxiety, Hx Schizophrenia, Hx Bipolar Disorder - Surgical History Surgery Procedure, Year, and Place: n/a - Immunization History Date of Tetanus Vaccine: UTD Date of Influenza Vaccine: NO Immunizations Up to Date: Yes Infectious Disease History: No Infectious Disease History: Denies: Hx Hepatitis, Hx Human Immunodeficiency Virus (HIV), Traveled Outside the [place] in Last 30 Days - Family History Known Family History: Positive: Unknown - She is adopted. - Social History Alcohol Use: None Alcohol Amount: PT reports past hx of etoh use Hx Substance Use: No Substance Use Type: Reports: Marijuana Substance Use Comment - Amount & Last Used: occasional use of THC Hx Tobacco Use: Yes Smoking Status (MU): Former Smoker Type: Cigarettes Have You Smoked in the Last Year: No Review of Systems Positive: Fever - subjective, Chills Positive: Sore Throat, Nasal Discharge Cardiovascular: Negative Positive: Cough Gastrointestinal: Negative Positive: Myalgia Positive: Headache All Other Systems Reviewed And Are Negative: Yes Physical Exam Triage Information Reviewed: Yes Vital Signs On Initial Exam: Initial Vitals Temp Pulse Resp BP Pulse Ox 98.2 F 76 17 124/61 100 05/19/17 15:42 05/19/17 15:42 05/19/17 15:42 05/19/17 15:42 05/19/17 15:42 Vital Signs Reviewed: Yes Appearance: Positive: No Pain Distress, Well-Nourished, Ill-Appearing Skin: Positive: Warm, Skin Color Reflects Adequate Perfusion, Dry, Cold. Negative: Soft, Cyanosis @, Pale, Erythema @ Head/Face: Positive: Normal Head/Face Inspection Eyes: Positive: Conjunctiva Clear ENT: Positive: Hearing grossly normal, Pharyngeal erythema, Nasal congestion, TMs normal, Tonsillar swelling, Tonsillar exudate, Uvula midline - airway patent , no sign of peritonsillar abscess Dental: Positive: Cervical Lymphadenopathy Neck: Positive: Supple, Nontender Respiratory/Lung Sounds: Positive: Clear to Auscultation, Breath Sounds Present. Negative: Rales, Rhonchi, Wheezes Cardiovascular: Positive: Normal, RRR, Pulses are Symmetrical in both Upper and Lower Extremities. Negative: Murmur, Rub Abdomen Description: Positive: Nontender, Soft Bowel Sounds: Positive: Present Musculoskeletal: Positive: Normal, Strength/ROM Intact Neurological: Positive: Normal, Sensory/Motor Intact, Alert, Oriented to Person Place, Time Diagnostics - Vital Signs Vital Signs Temp Pulse Resp BP Pulse Ox 05/19/17 15:42 98.2 F 76 17 124/61 100 - Laboratory Lab Results: Lab Results 05/19/17 Range/Units 15:59 Group A Strep Rapid Positive H (Negative) Lab Statement: Any lab studies that have been ordered have been reviewed, and results considered in the medical decision making process. EENT Course/Dx - Course Course Of Treatment: rapid strep culture obtained and positive. showed signs of strep on PE and HPI. will treat with amox and ibuprofen. given first dose in ED. continue at home. increase fluids, chlroaseptic spray, salt water gargles. follow up with pcp. aware of worsening signs and symptoms. no other concerns at this time. - Differential Diagnoses Differential Diagnoses: Pharyngitis, Other - strep throat - Diagnoses Provider Diagnoses: Strep pharyngitis Discharge - Discharge Plan Condition: Stable Disposition: HOME Prescriptions: Amoxicillin PO (*) [Amoxicillin 500 MG CAP*] 500 mg PO Q12H #19 cap Ibuprofen TAB* [Motrin TAB* 600 MG] 600 mg PO Q6H PRN #25 tab PRN Reason: Pain Patient Education Materials: Strep Throat (ED) Referrals: No Primary Care Phys,NOPCP [Primary Care Provider] - [facility] [place] [facility]FERR[facility] [Outside] Additional Instructions: Take prescribed medication as directed. Be sure to take antibiotic, amoxicillin, until entire dose is finished, even if you start to feel better. Salt water gargles and chloraseptic spray to help soothe sore throat. Wear masks, cover mouth and wash hands frequently. Avoid sharing drinks as strep is very contagious. Recommend getting new toothbrush after 5 days of treatment. Increase fluids and get plenty of rest. Ibuprofen for fever and pain. Follow up with PCP. Any new or worsening symptoms please seek medical attention promptly.
[2017-05-19] MEDS ORDERED: Amoxicillin PO (*) 500 MG CAP PO ONE (16:19)
[2017-05-19] MEDS ORDERED: Ibuprofen TAB* 600 MG PO ONE (16:19)
[2017-05-19 16:32] VITALS: BP 122/62
== END 2017-05-19 16:30 | disposition home or self-care (01) ==
LOC: ED 15:39
DX: J02.0 Streptococcal pharyngitis (principal); R13.10 Dysphagia, unspecified; R05 Cough
CPT/HCPCS: 87651; 99282; A9270-GY

== ENCOUNTER 2017-07-09 19:00 | Emergency (ER) | payer OTHER ==
[2017-07-09 19:09] VITALS: BP 106/45
[2017-07-09] MEDS ORDERED: Azithromycin TAB* 250 MG PO ONE (19:34)
[2017-07-09] MEDS ORDERED: cefTRIAXone VIAL(*) 250 MG VIAL IM ONE (19:34)
[2017-07-09] MEDS ORDERED: Lidocaine 1% MPF* 2 ML VIAL ONE (19:45)
--- NOTE | 2017-07-09 21:37 | UC ---
Paul Bond Nikita, scribed for Edilson Art MD on 07/09/17 at 1926 . Complaint Female HPI - HPI Summary HPI Summary: This patient is a 26 year old F presenting to [facility] with a chief complaint of yellow vaginal discharge and burning since 2-3 days ago. The patient states that the condom broke while having sexual intercourse with someone new. She took plan B 1 week ago and started feeling sick and having discharge and pain afterwards. The CC is described as worsened since onset. The patient had a Monistat yesterday but the sx has not gone away. The patient rates the pain 8/ 10 in severity. Symptoms aggravated by nothing. Symptoms alleviated by nothing. Patient reports slight pelvic pain. Patient denies fever, chills, and abdominal pain. LMP was on June 25. - History Of Current Complaint Chief Complaint: UCGU Stated Complaint: VAGINAL DISCHARGE Time Seen by Provider: 07/09/17 19:13 Hx Obtained From: Patient Hx Last Menstrual Period: June 25, 2017 Onset/Duration: Sudden Onset, Lasting Weeks, Still Present, Worse Since Timing: Constant, Lasting Weeks Severity Initially: Moderate Severity Currently: Moderate Pain Intensity: 8 Pain Scale Used: 0-10 Numeric Aggravating Factor(s): Nothing Alleviating Factor(s): Nothing Associated Signs And Symptoms: Positive: Vaginal Discharge - Patient reports slight pelvic pain. Patient denies fever, chills, and abdominal pain. - Allergies/Home Medications Allergies/Adverse Reactions: Allergies Allergy/AdvReac Type Severity Reaction Status Date / Time No Known Allergies Allergy Verified 07/09/17 19:09 Home Medications: Home Medications NK [No Home Medications Reported] 07/09/17 [History Confirmed 07/09/17] PMH/Surg Hx/FS Hx/Imm Hx Endocrine History: Other Other Endocrine History: No DM Cardiovascular History: Other Other Cardiovascular History: No CAD, HTN Other History Of: Negative For: HIV, Hepatitis B, Hepatitis C, Anticoagulant Therapy - Surgical History Surgical History: None Surgery Procedure, Year, and Place: n/a - Family History Known Family History: Positive: Unknown - She is adopted. - Social History Alcohol Use: Rare Alcohol Amount: PT reports past hx of etoh use Substance Use Type: None Substance Use Comment - Amount & Last Used: occasional use of THC Smoking Status (MU): Current Some Day Smoker Type: Cigarettes Have You Smoked in the Last Year: No Household Exposure Type: Cigarettes - Immunization History Most Recent Influenza Vaccination: 12/2016 Most Recent Tetanus Shot: 04/05/14 Most Recent Pneumonia Vaccination: never Review of Systems Constitutional: Other - denies fever, chills Gastrointestinal: Other - denies abdominal pain Genitourinary: Vaginal/Penile Burning, Vaginal/Penile Discharge - yellow vaginal discharge, Other - slight pelvic pain All Other Systems Reviewed And Are Negative: Yes Physical Exam - Summary Physical Exam Summary: VITAL SIGNS: Reviewed. GENERAL: ~Patient is a well-developed and nourished FEMALE who is lying comfortable in the stretcher. ~Patient is not in any acute respiratory distress. HEAD AND FACE: Normocephalic EYES: PERRLA, EOMI x 2. EARS: Hearing grossly intact. MOUTH: Oropharynx within normal limits. NECK: Supple, trachea is midline, no adenopathy, no JVD, no carotid bruit. CHEST: Symmetric, no tenderness at palpation LUNGS: Clear to auscultation bilaterally. No wheezing or crackles. CVS: Regular rate and rhythm, S1 and S2 present, no murmurs or gallops appreciated. ABDOMEN: Soft, non-tender. Bowel sounds are normal. No abdominal abnormal pulsations. EXTREMITIES: Full ROM in all major joints, no edema, no cyanosis or clubbing. NEURO: Alert and oriented x 3. No acute neurological deficits. Speech is normal and follows commands. SKIN: Dry and warm MINE CAR DISPATCHER: Female histologist (Nurse Dorman) is present during the examination. External genitalia: within normal limits. No rashes, lesions or ecchymosis. Speculum exam: copious amounts of yellow discharge mixed with white discharge. Possible cervical motion tenderness. All cultures were collected and send to the lab. Triage Information Reviewed: Yes Vital Signs: Initial Vital Signs Temp 98.3 F 07/09/17 19:05 Pulse 58 07/09/17 19:05 Resp 12 07/09/17 19:05 BP 106/45 07/09/17 19:05 Pulse Ox 100 07/09/17 19:05 Complaint Female Dx - Course Course Of Treatment: I discussed all the findings and test results with the patient. The patient agreed to be treated and will be given rocephin and azithromycin. She will call for the culture results tomorrow. Patient was instructed to return to the urgent care or go to ER immediately if any of the symptoms return or worsens. Plan of care was discussed with the patient, and patient understands and agrees. All questions were answered to patient satisfaction. There were no further complaints or concerns. - Differential Dx/Diagnosis Differential Diagnosis/HQI/PQRI: Other - STD Provider Diagnoses: STD Discharge - Sign-Out/Discharge Documenting (check all that apply): Discharge - Discharge Plan Condition: Stable Disposition: HOME Patient Education Materials: Sexually Transmitted Diseases (ED), Safe Sex (ED) Referrals: No Primary Care Phys,NOPCP [Primary Care Provider] - Additional Instructions: RETURN TO URGENT CARE OR THE ED FOR ANY WORSENING OR NEW SYMPTOMS. The documentation as recorded by the Paul morton Nikita accurately reflects the service I personally performed and the decisions made by , Edilson Art MD.
== END 2017-07-09 20:00 | disposition home or self-care (01) ==
LOC: UCEAST 19:00
DX: N89.8 Other specified noninflammatory disorders of vagina (principal); R10.2 Pelvic and perineal pain; Z11.3 Encounter for screening for infections with a predominantly sexual mode of transmission; Z32.02 Encounter for pregnancy test, result negative; Z72.0 Tobacco use
CPT/HCPCS: 81003; 84702; 87086; 87480; 87491; 87510; 87591; 87661; 96372; 99212; A9270-GY; G0463; J0696

== ENCOUNTER 2017-07-13 19:03 | Emergency (ER) | payer OTHER ==
[2017-07-13 19:09] VITALS: BP 128/54
--- NOTE | 2017-07-13 20:21 | ED ---
GI/ HPI - HPI Summary HPI Summary: 26 female presents ED with complaints of continuous yellow to whitish vaginal discharge with follow-up older she describes to be similar to "fishy". States symptoms have been ongoing for the past week. [facility] treated for possible STDs. Given azithromycin and Rocephin while in urgent care. However patient has still been having symptoms. Had cultures obtained on Wednesday and was told all of them were negative. States vaginal canal is very irritated and kaplan but denies any lower abdominal pelvic pain. 4 pregnancies 4 children. Normal menstrual cycle. Had a negative test on Sunday 07/09. Last menstrual period was June 25. Has a history of ovarian cysts. Has not taken any medication. Did try Monistat previously 1 week ago without any relief. Denies any dyspareunia. Denies any urinary frequency or urgency or burning. Does have some intermittent low achy back pain at times. No fever no chills. No nausea or vomiting. No other complaints or symptoms. No past medical history. Is sexually active. Has had sex and symptoms started, without complication, days if condom. Denies any vaginal bleeding. States symptoms just have not improved. Did have sex with a new sexual partner right before patient began having symptoms. Did use a condom but it broke. - History of Current Complaint Chief Complaint: EDOBProblems Stated Complaint: POSS UTI Hx Obtained From: Patient Hx Last Menstrual Period: June 25, 2017 Onset/Duration: Started Weeks Ago - 1, Still Present Severity: Moderate Current Severity: Moderate Pain Intensity: 4 Additional Location for Females: Vulva - Vaginal Pain Characteristics: Burning - Irritating, Itching Associated Signs and Symptoms: Positive: Discharge, New Sexual Partner Additional Signs & Symptoms: Positive: Vaginal Discharge, - 4, Para - 4 , First Day of Last Menstral Period - June 25, 2017, Menses Regular Aggravating Factor(s): Urination Alleviating Factor(s): Nothing - Additional Pertinent History Primary Care Physician: Dr Cruz - Allergy/Home Medications Allergies/Adverse Reactions: Allergies Allergy/AdvReac Type Severity Reaction Status Date / Time No Known Allergies Allergy Verified 07/13/17 19:09 PMH/Surg Hx/FS Hx/Imm Hx Endocrine/Hematology History: Denies: Hx Anticoagulant Therapy, Hx Diabetes, Hx Thyroid Disease Cardiovascular History: Denies: Hx Congestive Heart Failure, Hx Deep Vein Thrombosis, Hx Hypertension , Hx Myocardial Infarction, Hx Pacemaker/ICD Respiratory History: Denies: Hx Asthma, Hx Chronic Obstructive Pulmonary Disease (COPD), Hx Lung Cancer, Hx Pneumonia, Hx Pulmonary Embolism GI History: Denies: Hx Gall Bladder Disease, Hx Gastrointestinal Bleed, Hx Ulcer, Hx Urosepsis History: Denies: Hx Kidney Stones, Hx Renal Disease Neurological History: Denies: Hx Dementia, Hx Migraine, Hx Seizures, Hx Transient Ischemic Attacks (TIA) Psychiatric History: Reports: Hx Depression - PT denies, OB hx documents hx depression, Hx Inpatient Treatment - [facility] 06/2008, Hx of Violent Episodes Against Others - See H&P from 06/2008 admission Denies: Hx Anxiety, Hx Schizophrenia, Hx Bipolar Disorder - Surgical History Surgery Procedure, Year, and Place: n/a - Immunization History Date of Tetanus Vaccine: UTD Date of Influenza Vaccine: NO Immunizations Up to Date: Yes Infectious Disease History: No Infectious Disease History: Denies: Hx Hepatitis, Hx Human Immunodeficiency Virus (HIV), Traveled Outside the [place] in Last 30 Days - Family History Known Family History: Positive: Unknown - She is adopted. - Social History Alcohol Use: Rare Alcohol Amount: PT reports past hx of etoh use Hx Substance Use: No Substance Use Type: Reports: None Substance Use Comment - Amount & Last Used: occasional use of THC Hx Tobacco Use: Yes Smoking Status (MU): Current Some Day Smoker Type: Cigarettes Have You Smoked in the Last Year: No Review of Systems Constitutional: Negative Cardiovascular: Negative Respiratory: Negative Gastrointestinal: Negative Positive: see HPI, discharge Neurological: Negative All Other Systems Reviewed And Are Negative: Yes Physical Exam Triage Information Reviewed: Yes Vital Signs On Initial Exam: Initial Vitals Temp Pulse Resp BP Pulse Ox 97.6 F 62 18 128/54 97 07/13/17 19:05 07/13/17 19:05 07/13/17 19:05 07/13/17 19:05 07/13/17 19:05 Vital Signs Reviewed: Yes Appearance: Positive: Well-Appearing, No Pain Distress, Well-Nourished Skin: Positive: Warm, Skin Color Reflects Adequate Perfusion, Dry. Negative: Cold, Numb, Cyanosis @, Pale, Erythema @ Head/Face: Positive: Normal Head/Face Inspection Neck: Positive: Supple, Nontender Respiratory/Lung Sounds: Positive: Clear to Auscultation, Breath Sounds Present - Forget about he is. Negative: Rales, Rhonchi, Wheezes Cardiovascular: Positive: Normal, RRR, Pulses are Symmetrical in both Upper and Lower Extremities. Negative: Murmur, Rub Abdomen Description: Positive: Nontender, No Organomegaly, Soft. Negative: CVA Tenderness (R), CVA Tenderness (L), Distended, Guarding, McBurney's Point Tenderness, Peritoneal Signs Bowel Sounds: Positive: Present Pelvic Exam: Positive: External Exam Normal, Speculum Exam Normal - with discharge, Bimanual Exam Normal, No Cerv. Motion Tender - not significant, does have vaginal wall erythema, No Masses, Discharge - white/pompa in color, Other - malodorous odor "fishy". Negative: Active Bleeding, Cervicitis, Lesions, Mass, Tender Adnexa, Tender Uterus Musculoskeletal: Positive: Normal, Strength/ROM Intact Neurological: Positive: Normal, Sensory/Motor Intact, Alert, Oriented to Person Place, Time Diagnostics - Vital Signs Vital Signs Temp Pulse Resp BP Pulse Ox 07/13/17 19:05 97.6 F 62 18 128/54 97 - Laboratory Result Diagrams: 07/13/17 20:04 07/13/17 20:04 Lab Statement: Any lab studies that have been ordered have been reviewed, and results considered in the medical decision making process. - Ultrasound No standard instances Ultrasound Interpretation: Positive (See Comments) - Ultrasound findings are most consistent with a hemorrhagic/involuting follicle in the left ovary which is not necessarily pathologic in a premenopausal woman. Please correlate to the stage of the patient's menstruation. Ultrasound Interpretation Completed By: Radiologist Re-Evaluation - Re-Evaluation First Eval Re-Evaluation Time: 21:30 Change: Unchanged - still feeling fine and without pain, patient updated on all imaging/lab results. agrees with plan. has not yet been treated for BV will attempt and wait for repeat cultures. GIGU Course/Dx - Course Course Of Treatment: Physical labs and hCG obtained all unremarkable without significant findings. Ultrasound obtained due to worsening symptoms and to rule out other etiology, was negative other than possible left ovarian cyst normal for patient's age and menstruation cycle. Pelvic exam performed and is having vaginal discharge. Has been treated for everything other than BV. Will try a trial of Flagyl to treat for BV. Repeat cultures were obtained will await results. Urinalysis obtained and unremarkable. Will wait for culture results. Normal vitals and physical exam otherwise. No concern for other etiology of this time. Patient agrees and understands plan. All questions were answered. Aware worsening signs and symptoms watch out for. Did encourage using protection with sexual intercourse if not practicing abstinence until symptoms have improved. Follow-up with [facility] to ensure improvement in a couple days. - Diagnoses Differential Diagnoses - Female: Candidiasis, Cervicitis, STD, Vaginitis Provider Diagnoses: Bacterial vaginosis, Vaginitis Discharge - Sign-Out/Discharge Documenting (check all that apply): Discharge - Discharge Plan Condition: Good Disposition: HOME Prescriptions: metroNIDAZOLE [Flagyl] 500 mg PO BID #13 tablet Patient Education Materials: Bacterial Vaginosis (ED), Vaginitis (ED) Referrals: Mel Dorantes MD [Medical Doctor] - Additional Instructions: Use prescribed vaginal cream as directed for the next 4 nights. You will hear about culture results one received if positive. Recommend refraining from sexual activity until symptoms have improved. Always remember to use protection. Do not use any new soaps, lotions or other products to area. Follow-up with [facility] in 2-3 days to ensure improvement. Any new or worsening symptoms please seek medical attention. - Billing Disposition and Condition Condition: GOOD Disposition: HOME
[2017-07-13 20:48] LABS: Urine Appearance Cloudy; Urine Blood Negative (Negative); Urine Color Yellow; Urine Ketones Negative (Negative); Urine Protein Negative (Negative); Urine Specific Gravity 1.025 (1.010-1.030); Urine Urobilinogen Negative (Negative)
--- NOTE | 2017-07-13 21:06 | RAD ---
INDICATION: Pelvic pain, vaginal itching and odor since July 09, 2017 COMPARISON: None. TECHNIQUE: Real-time transabdominal and transvaginal ultrasound examination of the female pelvis including grayscale and Doppler color flow imaging. FINDINGS: Uterus: The uterus is normal in size and echogenicity measuring 7.7 x 4.8 x 6.1 cm. The endometrial stripe is smooth and uniform measuring 13 mm in thickness. Ovaries: The right and left ovary measure 3.0 x 1.5 x 1.7 cm and 3.6 x 2.1 x 1.9 cm, respectively. Normal arterial and venous waveforms are identified. Within the left ovary there is a heterogeneously echogenic and avascular structure measuring 2.9 x 1.7 x 1.5 cm. There is no free fluid in the cul-de-sac. IMPRESSION: Ultrasound findings are most consistent with a hemorrhagic/involuting follicle in the left ovary which is not necessarily pathologic in a premenopausal woman. Please correlate to the stage of the patient's menstruation.
[2017-07-13 21:15] LABS: ABS Basophils 0.2 10^3/ul (0-0.2); ABS Eosinophils 0.4 10^3/ul (0-0.6); ABS Lymphocytes 3.4 10^3/ul (1.0-4.8); ABS Monocytes 0.6 10^3/ul (0-0.8); ABS Neutrophils 5.6 10^3/ul (1.5-7.7); ABS Nucleated RBC 0 10^3/ul; Eosinophil % 4.1 % (0-6); Hematocrit 37 % (35-47); Hemoglobin 12.2 g/dl (12.0-16.0); Lymphocyte % 33.4 % (25-47); Mean Corpuscular HGB Conc 33 g/dl (31-36); Mean Corpuscular Hemoglobin 30 pg (27-31); Mean Corpuscular Volume 91 fL (80-97); Mean Platelet Volume 9.6 um3 (7.4-10.4); Nucleated Red Blood Cells % 0.1; Platelet Count 214 10^3/ul (150-450); Red Blood Count 4.03 10^6/ul (4.0-5.4); Red Cell Distribution Width 13 % (10.5-15); White Blood Count 10.1 10^3/ul (3.5-10.8)
[2017-07-13 21:33] LABS: EGFR Non-African American 78.3 (>60)
[2017-07-13] MEDS ORDERED: metroNIDAZOLE TAB* 250 MG PO ONE (21:36)
[2017-07-14] MEDS ORDERED: metroNIDAZOLE VAGINAL 0.75%* 70 GM VAGINAL ONE (21:29)
== END 2017-07-13 22:26 | disposition home or self-care (01) ==
LOC: ED 19:03
DX: N76.0 Acute vaginitis (principal); Z72.0 Tobacco use
CPT/HCPCS: 36415; 76830; 80053; 81003; 84702; 85025; 87480; 87491; 87510; 87591; 87661; 99282; A9270-GY

== ENCOUNTER 2017-10-25 19:19 | Emergency (ER) | payer OTHER ==
[2017-10-25 19:24] VITALS: BP 112/41
--- NOTE | 2017-10-25 20:31 | RAD ---
INDICATION: Anterior knee pain COMPARISON: None TECHNIQUE: AP, lateral, tunnel, and sunrise views were obtained. FINDINGS: The bony structures, joint spaces, and soft tissues are normal for age. IMPRESSION: NEGATIVE EXAMINATION.
[2017-10-25] MEDS ORDERED: Ibuprofen TAB* 600 MG PO ONE (20:46)
--- NOTE | 2017-10-25 20:55 | UC ---
Mina Bond Elizabeth, scribed for Nico Fountain MD on 10/25/17 at 1953 . Lower Extremity/Ankle HPI - HPI Summary HPI Summary: This patient is a 27 year old F presenting to [facility] with a chief complaint of right leg swelling and right knee pain since 1 week ago. The patient denies any injury to the RLE. The patient also reports intermittent chest pain for 1 month. The patient rates the pain 7/10 in severity. Symptoms aggravated by bearing weight. Symptoms alleviated by nothing. Patient reports limping while ambulating. - History of Current Complaint Chief Complaint: UCLowerExtremity Stated Complaint: KNEE PAIN, LEG SWELLING Time Seen by Provider: 10/25/17 19:47 Hx Obtained From: Patient Hx Last Menstrual Period: NOW Onset/Duration: Gradual Onset, Lasting Weeks - 1 week, Still Present Severity Initially: Moderate Severity Currently: Moderate Pain Intensity: 7 Pain Scale Used: 0-10 Numeric Aggravating Factor(s): Standing, Ambulation Alleviating Factor(s): Nothing Able to Bear Weight: Yes - Allergies/Home Medications Allergies/Adverse Reactions: Allergies Allergy/AdvReac Type Severity Reaction Status Date / Time No Known Allergies Allergy Verified 10/25/17 19:24 PMH/Surg Hx/FS Hx/Imm Hx Psychological History: Depression Other Psychological History: hx of violent episodes against others, hx of inpatient tx Other History Of: Negative For: HIV, Hepatitis B, Hepatitis C, Anticoagulant Therapy - Surgical History Surgical History: None Surgery Procedure, Year, and Place: n/a - Family History Known Family History: Positive: Unknown - She is adopted. - Social History Alcohol Use: Occasionally Alcohol Amount: PT reports past hx of etoh use Substance Use Type: None Substance Use Comment - Amount & Last Used: occasional use of THC Smoking Status (MU): Former Smoker Type: Cigarettes Have You Smoked in the Last Year: No Household Exposure Type: Cigarettes - Immunization History Most Recent Influenza Vaccination: 12/2016 Most Recent Tetanus Shot: 04/05/14 Most Recent Pneumonia Vaccination: never Review of Systems Constitutional: Negative - negative fever Skin: Negative - negative erythema Cardiovascular: Chest Pain Musculoskeletal: Arthralgia - right knee pain, Edema - right leg swelling All Other Systems Reviewed And Are Negative: Yes Physical Exam - Summary Physical Exam Summary: General: well-appearing, no pain distress Skin: warm, color reflects adequate perfusion, dry Head: normal Eyes: EOMI, AYLIN ENT: normal Neck: supple, nontender Respiratory: CTA, breath sounds present Cardiovascular: RRR Abdomen: soft, nontender Bowel: present Musculoskeletal: normal, strength/ROM intact. Right knee anterior swelling with no erythema, no calor, With lateral movement, patella is grinding and patient reports this is the source of her pain. Negative Mcmurrays, normal Lachmans. Back of the knee is non-tender, non-swollen. Calf is non-tender, non-swollen. Rest of leg is non-tender and non-swollen besides anterior knee. Good capillary refill, good pulses. Neurological: sensory/motor intact, A&O x3 Psychological: affect/mood appropriate Triage Information Reviewed: Yes Vital Signs: Initial Vital Signs Temp 97.4 F 10/25/17 19:20 Pulse 80 10/25/17 19:20 Resp 16 10/25/17 19:20 BP 112/41 10/25/17 19:20 Pulse Ox 98 10/25/17 19:20 Vital Signs Reviewed: Yes Diagnostics - Radiology Right knee XR Xray Interpretation: No Acute Changes - IMPRESSION: NEGATIVE EXAMINATION. Dr. Fountain has reviewed this report. Radiology Interpretation Completed By: Radiologist Lower Extremity Course/Dx - Course Course Of Treatment: THE PAIN AND SWELLING IS IN THE ANTERIOR KNEE. THERE IS NO CALF, POPITEAL OR THIGH PAIN. NO EVIDENCE OF DVT ON EXAM. DISCUSSED GOING TO THE EMERGENCY DEPARTMENT FOR EVALUATION FOR DVT IF HAVING ANY POSTERIOR LEG PAIN OR ANY CONCERNS. F/U PMD OR SPORTS MEDICINE; RECHECK SOONER IF WORSE. - Differential Dx/Diagnosis Provider Diagnoses: RIGHT PATELLOFEMORAL SYNDROME. RIGHT KNEE PAIN Discharge - Sign-Out/Discharge Documenting (check all that apply): Discharge/Admit/Transfer - Discharge Plan Condition: Stable Disposition: HOME Prescriptions: Ibuprofen TAB* [Motrin TAB* 600 MG] 600 mg PO Q6H PRN #30 tab PRN Reason: Pain Patient Education Materials: Patellofemoral Pain Syndrome (ED), Knee Pain (ED) Referrals: [facility] [Outside] [facility] [Outside] Additional Instructions: FOLLOW UP WITH YOUR PRIMARY CARE DOCTOR OR SPORTS MEDICINE IF NOT COMPLETELY IMPROVED. TAKE IBUPROFEN 600MG EVERY 6 HOURS NEEDED. GET RECHECKED FOR ANY WORSENING OF YOUR CONDITION; THERE IS PAIN IN THE BACK OF YOUR KNEE OR CALF, CHEST PAIN, SHORTNESS OF BREATH OR QUESTIONS OR CONCERNS. - Billing Disposition and Condition Condition: STABLE Disposition: Home The documentation as recorded by the Mina morton Elizabeth accurately reflects the service I personally performed and the decisions made by me, Nico Fountain MD.
== END 2017-10-25 20:55 | disposition home or self-care (01) ==
LOC: UCEAST 19:19
DX: M25.561 Pain in right knee (principal); M22.2X1 Patellofemoral disorders, right knee; M79.89 Other specified soft tissue disorders; Z87.891 Personal history of nicotine dependence
CPT/HCPCS: 99212; A9270-GY; G0463

== ENCOUNTER 2018-05-11 16:42 | Emergency (ER) | payer OTHER ==
[2018-05-11 17:00] VITALS: BP 103/61
--- NOTE | 2018-05-11 17:13 | UC ---
Throat Pain/Nasal [place] HPI - HPI Summary HPI Summary: Is a 27-year-old female with a 1-2 day history of severe sore throat. She denies any fever or chills. She denies any headache. She denies any myalgias. She denies any cough or sinus symptoms. She denies any chest pain or shortness of breath. - History of Current Complaint Chief Complaint: UCGeneralIllness Stated Complaint: SORE THROAT Hx Obtained From: Patient Hx Last Menstrual Period: [id number] Onset/Duration: Gradual Onset, Lasting Days Severity: Severe Pain Intensity: 8 Pain Scale Used: 0-10 Numeric Cough: None - Epiglottits Risk Factors Epiglottis Risk Factors: Negative - Allergies/Home Medications Allergies/Adverse Reactions: Allergies Allergy/AdvReac Type Severity Reaction Status Date / Time No Known Allergies Allergy Verified 05/11/18 17:00 PMH/Surg Hx/FS Hx/Imm Hx Previously Healthy: Yes Other History Of: Negative For: HIV, Hepatitis B, Hepatitis C, Anticoagulant Therapy - Surgical History Surgical History: None Surgery Procedure, Year, and Place: n/a - Family History Known Family History: Positive: Unknown - She is adopted. - Social History Alcohol Use: Weekly Alcohol Amount: PT reports past hx of etoh use Substance Use Type: None Substance Use Comment - Amount & Last Used: occasional use of THC Smoking Status (MU): Former Smoker Type: Cigarettes Have You Smoked in the Last Year: No Household Exposure Type: Cigarettes - Immunization History Most Recent Influenza Vaccination: 12/2016 Most Recent Tetanus Shot: 04/05/14 Most Recent Pneumonia Vaccination: never Review of Systems All Other Systems Reviewed And Are Negative: Yes Constitutional: Positive: Negative Skin: Positive: Negative Eyes: Positive: Negative ENT: Positive: Sore Throat Respiratory: Positive: Negative Cardiovascular: Positive: Negative Gastrointestinal: Positive: Negative Genitourinary: Positive: Negative Motor: Positive: Negative Neurovascular: Positive: Negative Musculoskeletal: Positive: Negative Neurological: Positive: Negative Psychological: Positive: Negative Physical Exam Triage Information Reviewed: Yes Appearance: Well-Appearing, No Pain Distress, Well-Nourished Vital Signs: Initial Vital Signs Temp 98.2 F 05/11/18 16:56 Pulse 84 05/11/18 16:56 Resp 16 05/11/18 16:56 BP 103/61 05/11/18 16:56 Pulse Ox 98 05/11/18 16:56 Eyes: Positive: Conjunctiva Clear ENT: Positive: Hearing grossly normal, Pharyngeal erythema, Tonsillar swelling, Uvula midline. Negative: Tonsillar exudate, Trismus, Muffled voice, Dental tenderness, Sinus tenderness Neck: Positive: Supple, Nontender, Enlarged Nodes @ - ant cerv Respiratory: Positive: Lungs clear, Normal breath sounds, No respiratory distress, No accessory muscle use Cardiovascular: Positive: RRR, No Murmur Musculoskeletal: Positive: ROM Intact, No Edema Neurological: Positive: Alert Psychological Exam: Normal Skin Exam: Normal Diagnostics - Laboratory Diagnostic Studies Completed/Ordered: strep (+) Throat Pain/Nasal Course/Dx - Differential Dx/Diagnosis Provider Diagnosis: Strep sore throat Discharge - Sign-Out/Discharge Documenting (check all that apply): Patient Departure All imaging exams completed and their final reports reviewed: No Studies - Discharge Plan Condition: Stable Disposition: HOME Prescriptions: Amoxicillin PO (*) [Amoxicillin 875 MG (*)] 875 mg PO BID #20 tab Patient Education Materials: Strep Throat (DC) Referrals: No Primary Care Phys,NOPCP [Primary Care Provider] - Additional Instructions: recheck in 3-4 days if not better - Billing Disposition and Condition Condition: STABLE Disposition: Home
== END 2018-05-11 17:50 | disposition home or self-care (01) ==
LOC: UCEAST 16:42
DX: Z87.891 Personal history of nicotine dependence (principal)
CPT/HCPCS: 87651; 99212; G0463

== ENCOUNTER 2019-05-04 11:27 | Emergency (ER) | payer SELFPAY ==
[2019-05-04 12:22] LABS: ABS Eosinophils 0.1 10^3/ul (0-0.6); ABS Lymphocytes 1.7 10^3/ul (1.0-4.8); ABS Monocytes 0.4 10^3/ul (0-0.8); ABS Neutrophils 5.1 10^3/ul (1.5-7.7); Eosinophil % 1.5 %; Hematocrit 35 % (35-47); Hemoglobin 12.2 g/dL (12.0-16.0); Lymphocyte % 23.4 %; Mean Corpuscular HGB Conc 35 g/dL (31-36); Mean Corpuscular Hemoglobin 32 pg (27-31); Mean Corpuscular Volume 91 fL (80-97); Mean Platelet Volume 9.4 fL (7.4-10.4); Platelet Count 228 10^3/uL (150-450); Red Blood Count 3.83 10^6 /uL (3.70-4.87); Red Cell Distribution Width 13 % (10-15); White Blood Count 7.4 10^3/uL (3.5-10.8)
[2019-05-04 12:46] LABS: Albumin 4.2 g/dL (3.2-5.2); Albumin/Globulin Ratio 1.4 (1-3); BUN/Creatinine Ratio 14.6 (8-20); Calcium 9.1 mg/dL (8.6-10.3); EGFR African American 101.2 (>60); EGFR Non-African American 83.6 (>60); Globulin 2.9 g/dL (2-4); Magnesium 1.8 mg/dL (1.9-2.7); Potassium 3.6 mmol/L (3.5-5.0); Total Bilirubin 0.6 mg/dL (0.2-1.0); Total Protein 7.1 g/dL (6.4-8.9)
[2019-05-04 13:28] LABS: TSH (Thyroid Stimulating Horm) 0.66 mcIU/mL (0.34-5.60)
[2019-05-04] MEDS ORDERED: Clindamycin CAP* 150 MG PO ONE (13:41)
[2019-05-04] MEDS ORDERED: HYDROcodone/ACETAMIN 5-325 MG* 1 TAB PO ONE (13:41)
[2019-05-04 16:47] VITALS: BP 103/67
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
== END 2019-05-04 16:42 | disposition home or self-care (01) ==
LOC: ED 11:27
DX: F07.81 Postconcussional syndrome (principal); K08.89 Other specified disorders of teeth and supporting structures; R52 Pain, unspecified; R53.83 Other fatigue; H53.8 Other visual disturbances
CPT/HCPCS: 36415; 70450; 80053; 83605; 83735; 84443; 84484; 85025; 93005; 99282; A9270-GY

== ENCOUNTER 2020-01-29 11:55 | Inpatient (IN) ==
[2020-01-29] MEDS ORDERED: Lactated Ringers 1000 ml BAG 1,000 ML IV ONE ×2 (12:38→15:20)
[2020-01-29] MEDS ORDERED: Lactated Ringers 1000 ml BAG 1,000 ML IV SCH (13:00)
[2020-01-29 13:21] LABS: Urine Benzodiazepine Screen None Detected (None Detect); Urine Cannabinoids Screen None Detected (None Detect); Urine Opiates Screen None Detected (None Detect)
[2020-01-29] MEDS ORDERED: Buffered Lidocaine 1% SYRIN 1 ml INTRADERM ONE (13:28)
[2020-01-29] MEDS ORDERED: OBEPIDURAL 250 ML EPIDURAL ONE (14:30)
[2020-01-29] MEDS ORDERED: Bupivacaine 0.5% SDV PF 30ML VIAL ONE (14:33)
[2020-01-29 14:46] LABS: ABS Eosinophils 0.1 10^3/ul (0-0.6); ABS Lymphocytes 1.7 10^3/ul (1.0-4.8); ABS Monocytes 0.4 10^3/ul (0-0.8); Eosinophil % 0.8 %; Hematocrit 33 % (35-47); Hemoglobin 10.8 g/dL (12.0-16.0); Lymphocyte % 14.9 %; Mean Corpuscular HGB Conc 33 g/dL (31-36); Mean Corpuscular Hemoglobin 29 pg (27-31); Mean Corpuscular Volume 87 fL (80-97); Mean Platelet Volume 9.9 fL (7.4-10.4); Platelet Count 190 10^3/uL (150-450); Red Blood Count 3.76 10^6 /uL (3.70-4.87); Red Cell Distribution Width 15 % (10-15); White Blood Count 11.1 10^3/uL (3.5-10.8)
[2020-01-29] MEDS ORDERED: Sodium Citrate/Citric Acid LIQ 15 ML UDC PO PRN (15:20)
[2020-01-29] MEDS ORDERED: Phenylephrine 40 mcg/mL 10mL (400mcg) SYRINGE IV PUSH PRN ×2 (15:20)
[2020-01-29] MEDS ORDERED: EPHEDrine (Pressors) 50 MG/ML VIAL IV PUSH PRN (15:20)
[2020-01-29] MEDS: OBEPIDURAL 250 ML EPIDURAL SCH (16:45)
[2020-01-29] MEDS ORDERED: Ondansetron 4 mg VIAL 2 MG/ML 2 ml VIAL IV ONE (18:44)
[2020-01-29] MEDS: Lactated Ringers 1000 ml BAG 1,000 ML IV SCH ×2 (19:18→23:08)
[2020-01-29] MEDS ORDERED: Oxytocin in LR 20 UNITS/1,000 ML BAG IVPB ONE (19:21)
[2020-01-29] MEDS ORDERED: Oxytocin in LR 20 UNITS/1,000 ML BAG IVPB SCH (23:45)
[2020-01-30] MEDS ORDERED: Witch Hazel PAD JAR ONE (02:09)
[2020-01-30] MEDS ORDERED: Dibucaine 1% OINT 28.35 GM TUBE ONE (02:09)
[2020-01-30] MEDS ORDERED: Glycerin ADULT 2.4 gm SUPP PR PRN (02:46)
[2020-01-30] MEDS ORDERED: Dibucaine 1% OINT 28.35 GM TUBE PR PRN (02:46)
[2020-01-30] MEDS ORDERED: RHO D Immune Globulin (HUMAN) 300 MCG = 1,500 I.U. INJ IM PRN (02:46)
[2020-01-30] MEDS ORDERED: Witch Hazel PAD JAR TOPICAL PRN (02:46)
[2020-01-30] MEDS ORDERED: Lactated Ringers 1000 ml BAG 1,000 ML IV SCH (03:00)
[2020-01-30] MEDS ORDERED: Oxytocin in LR 20 UNITS/1,000 ML BAG IVPB SCH (03:00)
[2020-01-30] MEDS: OBEPIDURAL 250 ML EPIDURAL SCH (20:15)
[2020-01-30] MEDS ORDERED: Influenza VAC *QUAD* 2020-21* 0.5 ML SYRINGE IM ONE (20:25)
[2020-01-31 07:36] LABS: ABS Basophils 0.1 10^3/ul (0-0.2); ABS Eosinophils 0.4 10^3/ul (0-0.6); ABS Lymphocytes 2.7 10^3/ul (1.0-4.8); ABS Monocytes 0.5 10^3/ul (0-0.8); ABS Neutrophils 8.5 10^3/ul (1.5-7.7); Eosinophil % 2.9 %; Hematocrit 32 % (35-47); Hemoglobin 10.4 g/dL (12.0-16.0); Lymphocyte % 22.4 %; Mean Corpuscular HGB Conc 33 g/dL (31-36); Mean Corpuscular Hemoglobin 29 pg (27-31); Mean Corpuscular Volume 88 fL (80-97); Mean Platelet Volume 9.9 fL (7.4-10.4); Platelet Count 197 10^3/uL (150-450); Red Cell Distribution Width 15 % (10-15); White Blood Count 12.1 10^3/uL (3.5-10.8)
[2020-01-31 08:13] VITALS: BP 92/42
== END 2020-01-31 13:00 | disposition home or self-care (01) | DRG 560 ==
LOC: MCHOBOUT 11:55 → MCHOB 12:03
PROVIDERS: ADMIT Midwife; ATTEND Midwife